=== PATIENT | male | born 1950 | race Caucasian/White ===

== ENCOUNTER → 2017-03-20 | Outpatient (CLI) | payer OTHER, MEDICARE ==
[~2017-03-20] MED LIST: AMARYL4 MG PO; AMLODIPINE BESY10 MG PO; ASPIRIN325 PO; CINNAMON PO; CO-ENZYME Q-1010 MG PO; COREG PO; ELAVIL PO; FISHOIL PO; FLOMAX0.4 MG PO; GEMFIBROZIL 60600 MG PO; GLUCOPHAGE1000 MG PO; HYDROCODONE-AP1 EAC6 PO; IMDUR 30 MG TAB30 MG PO; LEVEMIR100 UNIT/1 SUBQ; LEVOTHROID PO; LISINOPRIL40 MG PO; LOPRESSOR100 MG PO; NEURONTIN 300300 M1 PO; NIACIN 500 MG500 M1 PO; PIOGLITAZONE15 MG; SAW PALMETTO C1 EACH PO; SUPER B-COMPLE1 EAC2 PO; ULTRAM 50MG TAB50 MG PO; UNICOMPLEX M TA1 TA1 PO; VITAMIN D2400 UNIT PO; ZENPEP DR 20,01 EACH PO; ZOCOR 20 MG TAB20 M1 PO; [UNRECOGNIZED DRUG - OTHER] PO
== END ==
LOC: M.RAD 09:07
DX: M16.12 Unilateral primary osteoarthritis, left hip (principal); Z98.890 Other specified postprocedural states

== ENCOUNTER → 2017-04-16 | Outpatient (CLI) | payer OTHER, MEDICARE | LOC: M.MRI 06:59 | DX: S73.102A Unspecified sprain of left hip, initial encounter (principal); M76.02 Gluteal tendinitis, left hip; R60.0 Localized edema; X58.XXXA Exposure to other specified factors, initial encounter; Y93.89 Activity, other specified; Y92.89 Other specified places as the place of occurrence of the external cause; Y99.8 Other external cause status ==